=== PATIENT | female | born 1930 | race Caucasian/White ===

== ENCOUNTER 2017-06-20 10:46 | Emergency (ER) | payer OTHER, MEDICARE ==
[~2017-06-20] VITALS: Ht 142.2 cm; Wt 61.2 kg
[~2017-06-20 10:46] MED LIST: BACTRIM DS TAB1 EACH PO; CALCIUM500 M1 PO; CENTRUM SILVER1 EAC3 PO; CYCLOBENZAPRINE5 M2 PO; DITROPAN XL5 M1 PO; FOLIC ACID1 M1 PO; HUMULIN 70100 UNIT/2 SC; ISOSORBIDE DINIT5 MG PO; LEVOTHYROXINE50 MCG PO; LIPITOR10 M1 PO; MACROBID100 MG PO; NITROGLYCERIN1 EAC1 TOP; OMEPRAZOLE40 M1 PO; QUINAPRIL HCL20 M1 PO; QUINAPRIL20 MG PO; SORBITRATE PO; VICODIN5-300 PO; VITAMIN B-121000 MC3 PO; VITAMIN C1000 M1 PO; VITAMIN D31000 UNI1 PO; [UNRECOGNIZED DRUG - OTHER] PO
--- NOTE | 2017-06-20 12:30 | ED GENERAL ADULT ---
History of Present Illness General Chief Complaint: Headache Stated Complaint: ALEXANDRA XS 3 DAYS Source: patient Exam Limitations: no limitations Vital Signs & Intake/Output Vital Signs & Intake/Output Vital Signs Date Time Temp Pulse Resp B/P B/P Pulse O2 O2 Flow FiO2 Mean Ox Delivery Rate 06/20 1354 97.1 57 18 161/60 95 06/20 1056 98.6 67 18 180/63 98 Room Air Allergies Coded Allergies: NO KNOWN ALLERGIES (02/07/14) Reconcile Medications Atorvastatin Calcium (Lipitor) 10 MG TABLET 1 TAB PO DAILY CHOLESTEROL ( Reported) Calcium Carbonate (Calcium) 500 MG TABLET 2 TAB PO DAILY SUPPLEMENT (Reported ) Cholecalciferol (Vitamin D3) (Vitamin D3) 1,000 UNIT CAPSULE 2 CAP PO DAILY SUPPLEMENT (Reported) Cyanocobalamin (Vitamin B-12) 1,000 MCG TABLET 1 TAB PO DAILY SUPPLEMENT ( Reported) Cyclobenzaprine HCl 5 MG TABLET 1 TAB PO TIDPRN PRN NECK PAIN Folic Acid 1 MG TABLET 1 TAB PO DAILY SUPPLEMENT (Reported) Insulin NPH Hum/Reg Insulin Hm (Humulin 70/30 Kwikpen) 100 UNIT/1 ML INSULN.PEN 19 U SC DAILY DIABETES (Reported) Isosorbide Dinitrate 5 MG TABLET 1 TAB PO BID HEART (Reported) Levothyroxine Sodium 50 MCG TABLET 1 TAB PO DAILY THYROID (Reported) Multivit-Min/FA/Lycopen/Lutein (Centrum Silver Tablet) 0.4 MG-300 MCG-250 MCG TABLET 1 TAB PO DAILY SUPPLEMENT (Reported) Naproxen (Naprosyn) 500 MG TABLET 1 TAB PO BID PRN headache Nitroglycerin (Nitroglycerin Patch) 1 EACH PATCH.TD24 0.4 MG TOP DAILY ANGINA (Reported) Omeprazole 40 MG CAPSULE.DR 1 CAP PO DAILY AC GI (Reported) Pumpkin Seed Extract/Soy Germ (Azo Bladder Control Capsule) 300 MG CAPSULE 1 CAP PO DAILY SUPPLEMENT (Reported) Quinapril HCl 20 MG TABLET 1 TAB PO DAILY BP (Reported) Triage Note: 86 YO FEMALE TO TRIAGE C/O HEADACHE IN BACK OF HEAD X3 DAYS. STATES SHE HAD TRAMADOL AT HOME AND TOOK ONE LAST PM WIHTOUT RELIEF. DENIES VISULA CHANGES OR NAUSEA. Triage Nurses Notes Reviewed? yes Onset: Gradual Duration: day(s): Timing: constant HPI: 86-year-old female with history of polio, hypertension, hyperlipidemia, insulin- dependent diabetes presenting with posterior headache 3 days. Reports posterior headache that radiates into her neck, worse with movement. Has been told in the past she has cervical osteoarthritis. Reports she has had this pain a few times in the past, and normally is relieved by tramadol. Try tramadol last night without relief. No head trauma. No on any anticoagulation. Denies visual changes, nausea, vomiting. (Mary Protillo) Past History Travel History Traveled to [place] past 21 day No Medical History Any Pertinent Medical History? see below for history Neurological: POLIO WITH RESIDULA FACILA DROOP EENT: NONE Cardiovascular: hypertension, CHOL Respiratory: NONE Gastrointestinal: GERD Hepatic: NONE Renal: NONE Musculoskeletal: NONE Psychiatric: NONE Endocrine: IDDM Surgical History Surgical History: non-contributory Psychosocial History What is your primary language Malaysian Tobacco Use: Never used Family History Hx Contributory? No (Mary Portillo) Review of Systems Review of Systems Constitutional: Reports: no symptoms. EENTM: Reports: no symptoms. Respiratory: Reports: no symptoms. Cardiovascular: Reports: no symptoms. GI: Reports: no symptoms. Genitourinary: Reports: no symptoms. Musculoskeletal: Reports: no symptoms. Skin: Reports: no symptoms. Neurological/Psychological: Reports: see HPI, headache. Denies: numbness, paresthesia. Hematologic/Endocrine: Reports: no symptoms. Immunologic/Allergic: Reports: no symptoms. (Mary Portillo) Physical Exam Physical Exam General Appearance: well developed/nourished, no apparent distress, alert, awake , comfortable Head: atraumatic, normal appearance, No scalp TTP Eyes: Bilateral: PERRL, EOMI. 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 Reflexes: 2+: bicep (R), bicep (L), tricep (L), tricep (L), knee (R), knee (L), ankle (R), ankle (L). Skin: intact, normal color, warm/dry Core Measures ACS in differential dx? No CVA/TIA Diagnosis: No Sepsis Present: No Sepsis Focused Exam Completed? No (Mary Portillo) Progress Differential Diagnoses I considered the following diagnoses in my evaluation of the patient: [ Osteoarthritis versus tension headache versus cervical strain, low concern for ICH versus subarachnoid versus meningitis] Plan of Care: CT head unremarkable for acute pathology. Patient reports complete pain relief after Toradol. Pain likely from musculoskeletal etiology. Given Rx naproxen and counseled on supportive care. Will follow up with her PMD and given strict return precautions. Initial ED EKG: none (Mary Portillo) Departure Departure Disposition: HOME OR SELF CARE Condition: Stable Clinical Impression Primary Impression: Headache Referrals: Dariela BELLO,Scott Chinchilla (PCP/Family) Additional Instructions: Use naproxen twice a day as needed for pain. Follow-up with your primary care provider for reevaluation. Return to the emergency department for any new or worsening symptoms. Departure Forms: Customer Survey General Discharge Information Prescriptions: Current Visit Scripts Naproxen (Naprosyn) 1 TAB PO BID PRN headache #60 TAB (Mary Portillo) PA/TOBACCO ROLLER Co-Sign Statement Statement: ED Attending supervision documentation- x I saw and evaluated the patient. I have also reviewed all the pertinent lab results and diagnostic results. I agree with the findings and the plan of care as documented in the PA's/TOBACCO ROLLER's documentation. [] I have reviewed the ED Record and agree with the PA's/TOBACCO ROLLER's documentation. [] Additions or exceptions (if any) to the PAs/TOBACCO ROLLER's note and plan are summarized below: [] (Madi BELLO,Miguel) Critical Care Note Critical Care Note Critical Care Time: non-applicable (Mary Portillo)
--- NOTE | 2017-06-20 13:25 | CT SCAN REPORT ---
EXAMINATION: CT HEAD WITHOUT CONTRAST CLINICAL INFORMATION: New onset headache. Evaluate for intracranial hemorrhage. COMPARISON: No relevant prior imaging. TECHNIQUE: Contiguous axial imaging was performed from the skull base to vertex without intravenous administration of contrast. DLP: 583.99 mGy-cm FINDINGS: There is no acute intracranial hemorrhage or abnormal extra-axial collection. No intracranial mass effect or midline shift. Lateral and third ventricles are normal. No hydrocephalus. Ill-defined foci of hypoattenuation are visualized within the periventricular white matter. Noguera-white matter differentiation is otherwise grossly preserved and there is no evidence of acute territorial infarct. Of note there is thickening of the retrodental soft tissues that presumably represents an articular pannus that is only partially visualized within the [id number] of this examination causing mild AP narrowing of the canal at the level of C1. The calvarium and skull base are intact. Mastoid air cells and middle ear cavities are well-aerated. Visualized paranasal sinuses are well-aerated. IMPRESSION: There are scattered chronic small vessel ischemic changes within the periventricular white matter. Grossly no evidence of acute territorial infarct or hemorrhage. Of note there is thickening of the retrodental soft tissues that presumably represents an articular pannus that is only partially included within the [id number] of this examination.
[2017-06-20 13:54] VITALS: BP 161/60
[2017-06-20] MEDS ORDERED: NAPROSYN500 M1 PO (14:29)
== END 2017-06-20 14:39 ==
LOC: ERH 10:46
DX: R51 Headache (principal)
CPT/HCPCS: 96372; J1885